=== PATIENT | female | born 1990 | race Hispanic/Latino ===

== ENCOUNTER 2020-06-30 10:39 | Outpatient (CLI) | payer OTHER, SELFPAY ==
--- NOTE | ~2020-06-30 | US_ITS ---
US thyroid INDICATION: Thyroid mass TECHNIQUE: Real-time sonographic images of the thyroid gland were obtained. COMPARISON: No prior studies for comparison. FINDINGS: The right thyroid lobe measures 6.1 x 2.2 x 2.3 cm. The left thyroid lobe measures 6.6 x 3 .8 x 4.5 cm. Thyroid echotexture is heterogeneous. In the right lobe there is a almost completely sergio id hypoechoic mass which is wider than tall, smooth margins and macrocalcification, TR 4. This mass m easures 3 x 1.8 x 1.7 cm. In the left lobe there is a complex heterogeneous appearing mass which is a lmost completely solid, predominantly hyperechoic, wider than tall, lobulated margins and internal va scularity measuring 4.5 x 3 x 3.9 cm, TR 4. IMPRESSION: 1. Bilateral thyroid masses which are concerning for malignancy. Bilateral ultrasound-guided thyroid biopsy recommended. Reviewed, dictated and finalized at location A. IMPRESSION: 1. Bilateral thyroid masses which are concerning for malignancy. Bilateral ult rasound-guided thyroid biopsy recommended.
== END 2020-06-30 10:40 | disposition home or self-care (01) ==
LOC: ANHIMG 10:47
PROVIDERS: PCP Physician Assistant; Visit Provider Physician Assistant
DX: E04.9 Nontoxic goiter, unspecified (principal)
CPT/HCPCS: 76536

== ENCOUNTER 2020-07-12 09:52 | Outpatient (CLI) | payer OTHER, SELFPAY ==
--- NOTE | ~2020-07-12 | US_ITS ---
EXAMINATION: US FNA w image guidance, US FNA additional DATE: 07/12/2020 10:44 INDICATION: Bilateral thyroid nodules TECHNIQUE: A time-out was performed to verify the patient's name, date of , and procedure to be performed . The procedure and its benefits and risks were discussed with the patient. Risks specifically discus sed included bleeding and infection. The patient understood the risks and agreed to proceed. The neck was prepped and draped in the usual sterile manner. Attention was first turned to the left thyroid n odule. 3 mL 1% lidocaine was used for local anesthesia. 6 passes were made with a 25G needle into th e lesion. Appropriate needle location was documented with continuous sonographic guidance. Attention was then turned to the right thyroid nodule. An additional 3 mL 1% lidocaine was used for local anes thesia. 6 passes were made with a 25G needle into the lesion. Appropriate needle location was docum ented with continuous sonographic guidance. Sterile bandages were applied. There were no immediate co mplications. FINDINGS: Grayscale ultrasound images demonstrate biopsy needles advanced into a 4.6 cm solid isoechoic left th yroid mass. Subsequent images demonstrate biopsy needles advanced into a 3.1 cm solid hypoechoic righ t thyroid mass. IMPRESSION: 1. Successful ultrasound-guided fine needle aspiration of a 4.6 cm solid left thyroid mass. 2. Successful ultrasound-guided fine-needle aspiration of a 3.1 cm solid right thyroid mass. Reviewed, dictated and finalized at location A. IMPRESSION: 1. Successful ultrasound-guided fine needle aspiration of a 4.6 cm solid left thyroid mass. 2. Successful ultrasound-guided fine-needle aspiration of a 3.1 cm solid right thyroid mass.
== END 2020-07-12 09:53 | disposition home or self-care (01) ==
LOC: ANHIMG 09:55
PROVIDERS: PCP Physician Assistant; Visit Provider Physician Assistant
DX: E04.1 Nontoxic single thyroid nodule (principal)
CPT/HCPCS: 10005; 10006; 88173; 88305

== ENCOUNTER 2021-03-13 11:10 | Outpatient (CLI) | payer OTHER, SELFPAY ==
--- NOTE | ~2021-03-13 | US_ITS ---
EXAMINATION: US thyroid DATE: 03/13/2021 11:36 INDICATION: Nontoxic single thyroid nodule. TECHNIQUE: Multiple ultrasound images of the thyroid were obtained. COMPARISON: Ultrasound 06/30/2020 FINDINGS: The right thyroid lobe measures 5.6 x 2.3 x 1.8 cm. The left thyroid lobe measures 6.5 x 3.4 x 4.1 c m. In the right thyroid lobe, there is a 3.0 cm solid, hypoechoic, [id number]-[id number]-whpt nodule with narendra h margin without echogenic foci (TI-RADS TR4), stable from 06/30/20. In the left thyroid lobe, there i s a 4.7 cm predominantly solid, isoechoic, kihsb-[id number]-oyqf nodule with smooth margin without echogeni c foci (TR3), stable from 06/30/20. Biopsy of both nodules on 07/12/2020 was benign. IMPRESSION: 1. Stable thyroid nodules, likely benign. Reviewed, dictated and finalized at location B.
== END 2021-03-13 11:11 | disposition home or self-care (01) ==
LOC: ANHIMG 11:14
PROVIDERS: PCP Physician Assistant
DX: E04.2 Nontoxic multinodular goiter (principal)
CPT/HCPCS: 76536

== ENCOUNTER 2023-07-10 07:42 | Emergency (ER) | payer OTHER, SELFPAY ==
[2023-07-10 07:43] VITALS: BP 137/84; PULSE 66; RESP 14; TEMP 36.5; O2SAT 97
[2023-07-10 08:59] LABS: Appearance Urine Cloudy (Clear); Bacteria Urine 4+ /hpf; Bilirubin Urine Negative (Negative); Blood Urine 3+ (Negative); Color Urine Yellow (Yellow); Glucose Urine UA Negative (Negative); Ketones Urine Negative (Negative); Leukocyte Esterase Ur 2+ LEU/UL (Negative); Nitrate Urine Positive (Negative); Non Pathogenic Casts 0-2; Protein Urine Trace mg/dL (Negative); Specific Grav Ur 1.021 (1.001-1.035); Squamous Epithelial Cell Urine Occasional /hpf (Few); Urobilinogen Urine 0.2 mg/dL (<2.0); WBC Urine >100 /hpf
[2023-07-10 09:14] LABS: Add Urine Microscopic? YES
--- NOTE | 2023-07-10 09:24 | ED.GENADULT ---
HPI - General Adult General Chief complaint: Urogenital-Female Stated complaint: urinary frequency, burning, bladder spasms Time Seen by Provider: 07/10/23 08:30 History of Present Illness HPI narrative: Patient is a 33-year-old female who presents ER with concerns for UTI. Over the last couple days she has been having urinary frequency and urgency and dysuria. She has occasional spasms. No fevers chills or sweats. No flank pain. Related Data Home Medications Medication Instructions Recorded Confirmed fluticasone propionate 50 1 spray intranasal BID 09/06/19 09/06/19 mcg/actuation nasal spray,suspension (Allergy Relief (fluticasone)) vit no.95-ferrous 1 tablet PO DAILY 09/06/19 09/06/19 fumarate 28 mg-folic acid 800 mcg tablet () Allergies Allergy/AdvReac Type Severity Reaction Status Date / Time No Known Allergies Allergy Unknown Verified 07/10/23 08:41 Review of Systems Constitutional: Constitutional: Denies chills and Denies fever(s) Gastrointestinal: Gastrointestinal: Reports abdominal pain, Denies nausea and Denies vomiting Genitourinary: Genitourinary: Denies hematuria, Reports nocturia, Reports dysuria, Reports pelvic pain, Denies flank pain and Denies vaginal discharge Comments: Patient is currently menstruating PMFSH Past Medical History Medical History (Updated 07/10/23 @ 12:52 by Robe To MD) Healthy female adult Surgical History Surgical History (Updated 07/10/23 @ 12:52 by Robe To MD) No history of previous surgery Family History Family History (System 09/28/22 @ 11:07 by Yeimy Jamil) Mother History of hysterectomy Uterine cancer Diabetes mellitus Ovarian cancer Cervical cancer Father Hypertension Social History Social History (System 09/28/22 @ 11:07 by Yeimy Jamil) Smoking status: Never smoker Substance use: never Gender identity (if verbalized by the patient): Female Spiritual care concerns: No Exam Narrative: GENERAL: Well-appearing, well-nourished, and in no acute distress. HEAD: Normocephalic, atraumatic. CHEST: Clear to auscultation. No respiratory distress. HEART: Regular rate and rhythm. Normal peripheral pulses. ABDOMEN: Soft, nontender, nondistended. EXTREMITIES: Normal range of motion. No edema. NEURO: Alert and oriented x3. PSYCH: Normal mood and affect. Course Course Emergency Course: Discussed results and treatment plan. Patient verbalized understanding. Discharge home. Vital Signs Vital signs: Vital Signs Temperature 97.7 F 07/10/23 07:43 Pulse Rate 66 07/10/23 07:43 Respiratory Rate 14 07/10/23 07:43 Blood Pressure 137/84 07/10/23 07:43 Pulse Oximetry 97 07/10/23 07:43 Oxygen Delivery Room Air 07/10/23 07:43 Temperature 97.7 F 07/10/23 07:43 Pulse Rate 66 07/10/23 07:43 Respiratory Rate 14 07/10/23 07:43 Blood Pressure 137/84 07/10/23 07:43 Pulse Oximetry 97 07/10/23 07:43 Oxygen Delivery Room Air 07/10/23 07:43 Medical Decision Making Vital Signs Vital Signs: Vital Signs Temperature 97.7 F 07/10/23 07:43 Pulse Rate 66 07/10/23 07:43 Respiratory Rate 14 07/10/23 07:43 Blood Pressure 137/84 07/10/23 07:43 Pulse Oximetry 97 07/10/23 07:43 Oxygen Delivery Room Air 07/10/23 07:43 Temperature 97.7 F 07/10/23 07:43 Pulse Rate 66 07/10/23 07:43 Respiratory Rate 14 07/10/23 07:43 Blood Pressure 137/84 07/10/23 07:43 Pulse Oximetry 97 07/10/23 07:43 Oxygen Delivery Room Air 07/10/23 07:43 Lab Data Labs: Lab Results 07/10/23 Range/Units 08:39 Urine Color Yellow (Yellow) Urine Appearance Cloudy H (Clear) Urine pH 6.0 (5.0-9.0) Ur Specific [place] 1.021 (1.001-1.035) Urine Protein Trace (Negative) mg/dL Urine Glucose (UA) Negative (Negative) mg/dL Urine Ketones Negative (Negative) mg/dL Ur Blood (Man) 3+ H (Negati
== END 2023-07-10 09:42 | disposition home or self-care (01) ==
PROVIDERS: Emergency Provider Emergency Medicine
DX: N39.0 Urinary tract infection, site not specified (principal)
CPT/HCPCS: 81001; 81025; 87077; 87086; 87088; 87186; 99283

== ENCOUNTER 2023-07-26 15:19 | Emergency (ER) | payer OTHER, SELFPAY ==
[2023-07-26 15:32] VITALS: BP 157/83; PULSE 78; RESP 19; TEMP 36.7; O2SAT 97
--- NOTE | 2023-07-26 16:17 | PC.NURSE ---
patient states that she is unable to wait at this time. ambulatory with steady gait. alert and oriented x4.
== END 2023-07-26 16:30 | disposition left against medical advice (07) ==
LOC: ANHED 16:23
DX: R51.9 Headache, unspecified (principal)
CPT/HCPCS: 99199

== ENCOUNTER 2023-11-10 08:18 | Emergency (ER) | payer OTHER, SELFPAY ==
[2023-11-10 08:35] VITALS: BP 141/90; PULSE 100; RESP 18; TEMP 36.1; O2SAT 99
--- NOTE | 2023-11-10 09:00 | ED.URI ---
HPI - URI/Sore Throat General Chief Complaint: Upper Respiratory Infection Stated Complaint: congestion Time Seen by Provider: 11/10/23 08:46 Source: patient and RN notes reviewed Mode of arrival: ambulatory Limitations: no limitations History of Present Illness HPI Narrative: Patient presents today with a one-week history of nasal congestion, rhinorrhea, yellow nasal discharge, or tonsil swelling without sore throat. Denies fever, cough. She has been using Benadryl, Mucinex, ibuprofen, and nasal spray without much relief. Patient states she was on Augmentin in September for pneumonia. Related Data Home Medications Medication Instructions Recorded Confirmed clonidine HCl 0.3 mg tablet mg 11/10/23 duloxetine 40 mg capsule,delayed mg PO 11/10/23 release levothyroxine 150 mcg tablet mcg 11/10/23 lurasidone 40 mg tablet mg 11/10/23 topiramate 50 mg tablet mg 11/10/23 trazodone 50 mg tablet mg 11/10/23 Allergies Allergy/AdvReac Type Severity Reaction Status Date / Time No Known Allergies Allergy Unknown Verified 11/10/23 08:33 Review of Systems Review of Systems: CONSTITUTIONAL: Denies body aches, fever, chills, or sweats. EYES: Denies visual changes, redness, or discharge. ENT: Denies rhinorrhea, sore throat, or otalgia.+ congestion, nasal drainage, tonsil swelling CARDIOVASCULAR: Denies chest pain, palpitations, or edema. RESPIRATORY: Denies cough or dyspnea. GASTROINTESTINAL: Denies abdominal pain, nausea, vomiting, or diarrhea. GENITOURINARY: Denies dysuria or hematuria. SKIN: Denies rash, itching, or wounds. MUSCULOSKELETAL: Denies back pain, joint pain, or myalgia. NEUROLOGIC: Denies headache, numbness, tingling, or weakness. PSYCH: Denies depression or anxiety. [facility] Past Medical History Medical History (Updated 11/10/23 @ 09:05 by CHER Villafuerte, CICI) History of thyroid cancer Surgical History Surgical History (Updated 11/10/23 @ 09:03 by CHER Villafuerte, CICI) H/O thyroidectomy No history of previous surgery Family History Family History Mother History of hysterectomy Uterine cancer Diabetes mellitus Ovarian cancer Cervical cancer Father Hypertension Social History Social History Smoking status: Never smoker Substance use: never Gender identity (if verbalized by the patient): Female Spiritual care concerns: No Exam Narrative: GENERAL: Mildly ill-appearing, well-nourished, and in no acute distress. HEAD: Normocephalic, atraumatic. EYES: EOMI. No redness or drainage. Conjunctivae normal. ENT: Mucous membranes pink and moist. Nares congestive. Bilateral erythematous and edematous nasal turbinates with purulent green discharge. TMs normal bilaterally. Throat normal. Uvula midline. NECK: Normal AROM. Supple. No lymphadenopathy. CHEST: No respiratory distress. Clear to auscultation. HEART: Regular rate and rhythm. No murmur appreciated. EXTREMITIES: Normal range of motion. No edema. SKIN: Warm, dry, no rash. Capillary refill normal. Normal skin turgor. NEURO: No focal deficits. Alert and oriented x3. Gait steady. PSYCH: Normal affect. No signs of depression or anxiety. Course Course Level of Care: Express Care Visit Vital Signs Vital signs: Vital Signs Temperature 96.9 F L 11/10/23 08:35 Pulse Rate 100 11/10/23 08:35 Respiratory Rate 18 11/10/23 08:35 Blood Pressure 141/90 H 11/10/23 08:35 Pulse Oximetry 99 11/10/23 08:35 Oxygen Delivery Room Air 11/10/23 08:35 Temperature 96.9 F L 11/10/23 08:35 Pulse Rate 100 11/10/23 08:35 Respiratory Rate 18 11/10/23 08:35 Blood Pressure 141/90 H 11/10/23 08:35 Pulse Oximetry 99 11/10/23 08:35 Oxygen Delivery Room Air 11/10/23 08:35 Reviewed MDM - URI/Sore Throat MDM Narrative Medical decision making narrative: Anuja
== END 2023-11-10 09:08 | disposition home or self-care (01) ==
PROVIDERS: Emergency Provider Nurse Practitioner
DX: J32.9 Chronic sinusitis, unspecified (principal); B96.89 Other specified bacterial agents as the cause of diseases classified elsewhere; Z79.899 Other long term (current) drug therapy; Z85.850 Personal history of malignant neoplasm of thyroid
CPT/HCPCS: 99213; G0463

== ENCOUNTER 2023-12-10 14:58 | Emergency (ER) | payer OTHER, SELFPAY ==
[2023-12-10] VITALS (7 sets, daily range): BP systolic 137–175; BP diastolic 84–100; PULSE 82–100; RESP 9–27; TEMP 36.8; O2SAT 98–100
[2023-12-10 15:50] LABS: Basophils Absolute Auto 0.1 K/mm3 (0.0-0.1); Basophils Percent Auto 0.7 % (0.2-1.2); Eosinophils Absolute Auto 0.2 K/mm3 (0-0.3); Eosinophils Percent Auto 2.1 % (0-4.4); Hematocrit 40.1 % (37.0-47.0); Hemoglobin 14.3 g/dL (12.0-15.0); Immature Granulocyte Absolute 0.01 K/mm3 (0.00-0.031); Immature Granulocyte Percent A 0.1 % (0-0.5); Lymphocytes Absolute Auto 4.67 K/mm3 (0.9-3.2); Lymphocytes Percent Auto 49.4 % (18.3-44.2); Mean Corpuscular HGB Conc 35.7 g/dl (32-36); Mean Corpuscular Hemoglobin 32.7 pg (26-34); Mean Corpuscular Volume 91.8 fl (80-100); Mean Platelet Volume 9.7 fl (7.4-10.4); Monocytes Absolute Auto 0.5 K/mm3 (0.1-0.6); Monocytes Percent Auto 5.3 % (2.6-8.5); Neutrophils Percent Auto 42.4 % (45.5-73.1); Platelet Count Result 298 k/mm3 (150-375); Red Blood Count 4.37 M/mm3 (4.2-5.4); Red Cell Distribution Width 13.1 % (11.5-14.5); White Blood Count 9.5 K/mm3 (4.5-10.0)
[2023-12-10 16:08] LABS: Alanine Aminotransferase 35 U/L (6-35); Albumin Level 4.7 g/dL (3.5-5.1); Alkaline Phosphatase 69 U/L (38-126); Anion Gap 11 mmol/L (8-16); Aspartate Amino Transferase 52 U/L (14-36); Bilirubin,Total 0.5 mg/dL (0.2-1.3); Blood Urea Nitrogen 6 mg/dL (7-17); Calcium 7.8 mg/dL (8.4-10.2); Carbon Dioxide 25 mmol/L (22-30); Chloride 100 mmol/L (98-107); Estimated CRCL calculation 123 ml/min; Estimated Glomerular Filt Rate > 60; Glucose 92 mg/dL (65-110); Potassium 2.8 mmol/L (3.4-5.0); Sodium 136 mmol/L (137-145)
--- NOTE | 2023-12-10 16:36 | ECG_ITS ---
Measurements Intervals [place] Rate: 89 P: 59 NC: 146 QRS: 37 QRSD: 97 T: -29 QT: 390 QTc: 476 Interpretive Statements SINUS RHYTHM MODERATE T-WAVE ABNORMALITY, CONSIDER LATERAL ISCHEMIA [-0.1+ mV T-WAVE IN I/aVL/V5/V6] MODERATE T-WAVE ABNORMALITY, CONSIDER INFERIOR ISCHEMIA [-0.1+ mV T-WAVE IN II/aVF] ABNORMAL ECG NO PREVIOUS ECG AVAILABLE FOR COMPARISON Electronically Signed On 12-11-2023 8:01:29 [employer]SULT[employer] by Frank Choe M.D.
[2023-12-10] MEDS: POTASSIUM CHLORIDE 20 MEQ PACKET (FOR LIQUID) 40 MEQ PO (16:59)
[2023-12-10] MEDS: SODIUM CHLORIDE 0.9% IV 1,000 ML 999 ML IV CONT (17:01)
[2023-12-10] MEDS: CALCIUM GLUCONATE 1,000 MG/10 ML VIAL 1000 MG IV PUSH (17:02)
[2023-12-10] MEDS: KCL 20 MEQ/SW 100 ML 100 ML 50 MEQ IVPB (17:11)
[2023-12-10 17:18] LABS: Amphetamine Screen Urine Negative (Negative); Barbiturate Screen Urine Negative (Negative); Benzodiazepines Screen Urine Negative (Negative); Cannabinoid Screen Urine Negative (Negative); Cocaine Screen Urine Negative (Negative); Methadone Screen Urine Negative (Negative); Opiate Screen Urine Negative (Negative); Phencyclidine Screen Urine Negative (Negative)
[2023-12-10 17:46] LABS: Creatine Kinase 355 U/L (30-135); Ethanol < 10 mg/dL (<10); Lipase 56 U/L (23-300); Magnesium 1.8 mg/dL (1.6-2.3); Phosphorus 3.2 mg/dL (2.5-4.5)
--- NOTE | 2023-12-10 17:49 | ED.NEUROSD ---
HPI - Neuro Symptoms/Deficit General Chief Complaint: Neuro Symptoms/Deficit Stated Complaint: hands tingling Time Seen by Provider: 12/10/23 16:35 Source: patient Limitations: no limitations History of Present Illness HPI Narrative: Patient is a 33-year-old female presents to the emergency department complaining of paresthesias in her hands and spasm so for left thumb since about 9:00 a.m. this morning. Patient notes that she was feeling well last night and denies any recent injuries or recent illness. Patient admits to history of this in the past when her calcium levels are low. Patient states that she was a history of papillary thyroid cancer and had her thyroid removed in November of 2022. Patient admits to family members also having thyroid abnormalities. Patient notes she was recently taken off of trazodone and Topamax and switch to mirtazapine alone 1 week ago which she takes for her headaches. Patient admits to consuming a normal diet. Patient denies any vomiting, nausea, diarrhea, urinary discomfort, abdominal pain, chest pain, difficulty breathing, cough, fever, sore throat, nasal congestion, neck pain, confusion, numbness, weakness. Patient admits to a possible history of low vitamin-D levels but denies ever being on vitamin-D supplementation. Patient admits to history of low potassium levels and used to take potassium supplements. Patient admits to some mild swelling in her bilateral feet. Related Data Home Medications Medication Instructions Recorded Confirmed clonidine HCl 0.3 mg tablet mg 11/10/23 duloxetine 40 mg capsule,delayed mg PO 11/10/23 release levothyroxine 150 mcg tablet mcg 11/10/23 lurasidone 40 mg tablet mg 11/10/23 topiramate 50 mg tablet mg 11/10/23 trazodone 50 mg tablet mg 11/10/23 Allergies Allergy/AdvReac Type Severity Reaction Status Date / Time No Known Allergies Allergy Unknown Verified 12/10/23 16:10 Review of Systems Review of Systems: A 10 system review of systems was completed on the patient and is negative except for what is stated in the HPI. Nursing and ancillary documentation was reviewed. [facility] Past Medical History Medical History (Updated 12/10/23 @ 20:08 by Cameron Serna, ) History of thyroid cancer Surgical History Surgical History (Updated 11/10/23 @ 09:03 by Coty Simpson, [employer], ) H/O thyroidectomy No history of previous surgery Family History Family History Mother History of hysterectomy Uterine cancer Diabetes mellitus Ovarian cancer Cervical cancer Father Hypertension Social History Social History Smoking status: Never smoker Substance use: never Gender identity (if verbalized by the patient): Female Spiritual care concerns: No Comments At time of signature, I have reviewed and agree with nursing past medical, surgical, social and family history unless otherwise noted. Please see the nursing chart for further information. There is no relevant family history pertinent to the presenting complaint. Exam Narrative: CONST: No acute distress. Well nourished. HENMT: Head is normocephalic and atraumatic. Moist mucous membranes. No posterior oropharynx erythema. EYES: No conjunctival icterus, injection, or pallor. PERRL. NECK: No meningeal signs. RESP: Able to speak in full sentences. Normal respiratory effort. CTAB. CARDIO: Regular rate. Regular rhythm. 2+ DP and radial pulses bilaterally. GI: Nondistended. No tenderness to palpation. Soft. : No CVA tenderness to palpation. SKIN: No rashes or lesions noted on exposed skin. NEURO: Oriented x3. Moves all extremities. No focal neurological deficits. EXTREM/MSK/BACK: Scant nonpitting edema of the bilateral feet. PSYCH: Normal affect. Course Vital Signs Vital signs: Vital Signs Temperature 98.3 F 12/10/23 15:
[2023-12-10 18:58] LABS: Free T4 Free Thyroxine Reflex 0.69 ng/dL (0.78-2.19)
--- NOTE | 2023-12-10 19:00 | PC.NURSE ---
this rn asked [employer] lab technican Shelly, to call lab to have lab add on urine analysis for pt. Shelly stated, lab would look for it to add on.
--- NOTE | 2023-12-10 19:21 | PC.NURSE ---
this rn assumed care of patient. this rn took patient report from lety funes.
--- NOTE | 2023-12-10 19:50 | PM.IMHP ---
H&P: HPI History of Present Illness Date/Time: 12/10/23 19:50 [facility] Past Medical History Medical History (Updated 12/10/23 @ 20:08 by Cameron Serna DO) History of thyroid cancer Surgical History Surgical History (Updated 11/10/23 @ 09:03 by CHER Villafuerte, BC) H/O thyroidectomy No history of previous surgery Family History Family History Mother History of hysterectomy Uterine cancer Diabetes mellitus Ovarian cancer Cervical cancer Father Hypertension Social History Social History Smoking status: Never smoker Substance use: never Gender identity (if verbalized by the patient): Female Spiritual care concerns: No Meds Home Medications and Allergies Home Medications Medication Instructions Recorded Confirmed Type amoxicillin 875 mg-potassium 1 tablet PO Q12H 10 days #20 tabs 11/10/23 Rx clavulanate 125 mg tablet clonidine HCl 0.3 mg tablet mg 11/10/23 History duloxetine 40 mg capsule,delayed mg PO 11/10/23 History release levothyroxine 150 mcg tablet mcg 11/10/23 History lurasidone 40 mg tablet mg 11/10/23 History topiramate 50 mg tablet mg 11/10/23 History trazodone 50 mg tablet mg 11/10/23 History Allergies Allergy/AdvReac Type Severity Reaction Status Date / Time No Known Allergies Allergy Unknown Verified 12/10/23 16:10 Vital Signs Vital Signs - 24 hr 12/10/23 15:03 12/10/23 16:14 12/10/23 16:14 Temperature 98.3 F Pulse Rate 100 95 95 Respiratory Rate 18 9 L Blood Pressure 175/100 H 144/92 H Pulse Oximetry 100 99 Oxygen Delivery Room Air 12/10/23 17:09 12/10/23 18:48 Temperature Pulse Rate 91 82 Respiratory Rate 24 H 27 H Blood Pressure 157/90 H 140/84 Pulse Oximetry 99 98 Oxygen Delivery H&P: Results Labs Labs: Short CBC 12/10/23 Range/Units 15:36 WBC 9.5 (4.5-10.0) K/mm3 Hgb 14.3 D (12.0-15.0) g/dL Hct 40.1 (37.0-47.0) % Plt Count 298 D (150-375) k/mm3 BMP 12/10/23 15:36 Sodium 136 L Potassium 2.8 L* Chloride 100 Carbon Dioxide 25 BUN 6 L Creatinine 0.70 Glucose 92 Calcium 7.8 L Cardiac Enzymes 12/10/23 Range/Units 15:35 Total Creatine Kinase 355 H (30-135) U/L Liver Function 12/10/23 Range/Units 15:36 Total Bilirubin 0.5 (0.2-1.3) mg/dL AST 52 H (14-36) U/L ALT 35 (6-35) U/L Alkaline Phosphatase 69 (38-126) U/L Albumin 4.7 (3.5-5.1) g/dL
--- NOTE | 2023-12-10 20:18 | PC.NURSE ---
this rn contacted lab about a urine analysis to be added to the urine drug screen on the pt urine that was already sent down. senior service technician stated, I will look for it but I don't think it is down here, must have been sent to another floor . This RN stated to laboratory director that urine was sent down earlier on pt and a urine drug screen had already resulted, a urine analysis was just what needed to be added on. senior service technician stated she would look for it.
[2023-12-10] MEDS: SODIUM CHLORIDE 0.9% IV 1,000 ML 125 ML IV CONT (20:33)
[2023-12-10 20:39] LABS: Appearance Urine Clear (Clear); Bacteria Urine Rare /hpf; Bilirubin Urine Negative (Negative); Blood Urine Negative (Negative); Color Urine Yellow (Yellow); Glucose Urine UA Negative (Negative); Ketones Urine Negative (Negative); Leukocyte Esterase Ur Negative LEU/UL (Negative); Nitrate Urine Negative (Negative); Non Pathogenic Casts 0-2; Protein Urine 2+ mg/dL (Negative); RBC Urine 0-2 /hpf (0-2); Specific Grav Ur 1.011 (1.001-1.035); Squamous Epithelial Cell Urine Few /hpf (Few); Urobilinogen Urine 0.2 mg/dL (<2.0); WBC Urine 0-5 /hpf; pH Urine 6.5 (5.0-9.0)
[2023-12-10 21:00] LABS: Add Urine Microscopic? YES
[2023-12-14 11:18] LABS: Vitamin D 1,25 (OH)2 Total 102 pg/mL (18-72); Vitamin D2 1,25 (OH)2 <8 pg/mL; Vitamin D3 1,25 (OH)2 102 pg/mL
== END 2023-12-10 21:36 | disposition home or self-care (01) ==
PROVIDERS: Emergency Medicine; Emergency Provider Student in an Organized Health Care Education/Training Program
DX: R20.2 Paresthesia of skin (principal); E83.51 Hypocalcemia; E87.6 Hypokalemia; E89.0 Postprocedural hypothyroidism; R29.0 Tetany; Z85.850 Personal history of malignant neoplasm of thyroid; R94.31 Abnormal electrocardiogram [ECG] [EKG]
CPT/HCPCS: 36415; 80053; 80307; 81001; 81025; 82306; 82550; 82652; 83690; 83735; 84100; 84439; 84443; 85025; 93005; 96361; 96365; 96366; 96375; 99284; A9270; J0612; J3480; J7030

== ENCOUNTER 2023-12-12 15:15 | Emergency (ER) | payer OTHER, SELFPAY ==
[2023-12-12 15:17] VITALS: BP 157/106; PULSE 116; RESP 18; TEMP 36.6; O2SAT 99
--- NOTE | 2023-12-12 15:23 | ECG_ITS ---
Measurements Intervals [place] Rate: 108 P: 53 AL: 120 QRS: 44 QRSD: 93 T: -5 QT: 305 QTc: 409 Interpretive Statements SINUS TACHYCARDIA NONSPECIFIC T-WAVE ABNORMALITY ABNORMAL ECG COMPARED TO ECG 12/10/2023 16:52:00 SINUS TACHYCARDIA NOW PRESENT Electronically Signed On 12-13-2023 8:37:28 [employer] by Frank Choe M.D.
[2023-12-12 15:40] LABS: Basophils Absolute Auto 0.1 K/mm3 (0.0-0.1); Basophils Percent Auto 0.6 % (0.2-1.2); Eosinophils Absolute Auto 0.2 K/mm3 (0-0.3); Eosinophils Percent Auto 1.7 % (0-4.4); Hematocrit 40.3 % (37.0-47.0); Hemoglobin 13.8 g/dL (12.0-15.0); Immature Granulocyte Absolute 0.04 K/mm3 (0.00-0.031); Immature Granulocyte Percent A 0.4 % (0-0.5); Lymphocytes Absolute Auto 4.23 K/mm3 (0.9-3.2); Lymphocytes Percent Auto 43.8 % (18.3-44.2); Mean Corpuscular HGB Conc 34.2 g/dl (32-36); Mean Corpuscular Hemoglobin 31.9 pg (26-34); Mean Corpuscular Volume 93.3 fl (80-100); Mean Platelet Volume 9.7 fl (7.4-10.4); Monocytes Absolute Auto 0.6 K/mm3 (0.1-0.6); Monocytes Percent Auto 5.8 % (2.6-8.5); Neutrophils Absolute Auto 4.6 K/mm3 (1.3-6.7); Neutrophils Percent Auto 47.7 % (45.5-73.1); Platelet Count Result 297 k/mm3 (150-375); Red Blood Count 4.32 M/mm3 (4.2-5.4); Red Cell Distribution Width 13.2 % (11.5-14.5); White Blood Count 9.7 K/mm3 (4.5-10.0)
[2023-12-12 15:50] LABS: Alanine Aminotransferase 33 U/L (6-35); Albumin Level 4.4 g/dL (3.5-5.1); Alkaline Phosphatase 63 U/L (38-126); Anion Gap 10 mmol/L (8-16); Aspartate Amino Transferase 54 U/L (14-36); Bilirubin,Total 0.4 mg/dL (0.2-1.3); Blood Urea Nitrogen 7 mg/dL (7-17); Calcium 10.3 mg/dL (8.4-10.2); Carbon Dioxide 26 mmol/L (22-30); Chloride 103 mmol/L (98-107); Estimated Glomerular Filt Rate > 60; Glucose 105 mg/dL (65-110); Potassium 3.5 mmol/L (3.4-5.0); Sodium 139 mmol/L (137-145)
--- NOTE | 2023-12-12 16:08 | PC.NURSE ---
Pt A&O x4 walked out before seeing provider.
== END 2023-12-12 16:46 | disposition left against medical advice (07) ==
PROVIDERS: Emergency Provider Emergency Medicine
DX: R00.2 Palpitations (principal)
CPT/HCPCS: 36415; 80053; 85025; 93005; 99199; 99283

== ENCOUNTER 2024-08-02 09:50 | Emergency (ER) | payer OTHER, SELFPAY ==
[2024-08-02 10:13] VITALS: BP 147/90; PULSE 90; RESP 18; TEMP 36.4; O2SAT 98
[2024-08-02 10:15] VITALS: BP 147/90; PULSE 90; RESP 18; TEMP 36.4; O2SAT 98
[2024-08-02 10:26] LABS: EDSTREPNEGPOS1 Positive (Negative)
--- NOTE | 2024-08-02 11:03 | ED.URI ---
HPI - URI/Sore Throat General Chief Complaint: Upper Respiratory Infection Stated Complaint: cold symptoms and throat pain Time Seen by Provider: 08/02/24 10:24 Source: patient, RN notes reviewed and old records reviewed Mode of arrival: ambulatory Limitations: no limitations History of Present Illness HPI Narrative: 34-year-old female to Express Care with complaint of sore throat that has become increasingly worse over the past 3 days. Patient states that her soft palette has become increasingly red, swollen and painful. Patient endorses cough with thick green sputum that is foul tasting as well and does increased pain with swallowing , runny nose, fatigue, fever up to 100?. patient has attempted to treat her symptoms at home with Motrin and NyQuil with little relief. Patient able to tolerate fluids by mouth. Patient denies hoarseness, difficulty swallowing, shortness of breath, allergies, pertinent medical history. Patient resting uncomfortably in exam room, appears acutely ill. Respirations even and nonlabored. Patient in no acute distress. Related Data Home Medications Medication Instructions Recorded Confirmed levothyroxine 150 mcg tablet 150 mcg DIRECTED 11/10/23 08/02/24 Allergies Allergy/AdvReac Type Severity Reaction Status Date / Time No Known Allergies Allergy Unknown Verified 08/02/24 10:14 Review of Systems Review of Systems: All systems reviewed & are unremarkable except as noted in HPI and below Constitutional: Constitutional: Reports as per HPI, Reports fatigue and Reports fever(s) Eyes: Eyes: Reports no additional eye complaints ENT: Reports as per HPI, Reports nasal discharge and Reports sore throat Cardiovascular: Cardiovascular: Reports no additional cardiovascular complaints, Denies chest pain and Denies dyspnea Respiratory: Respiratory: Reports no additional respiratory complaints, Reports change in phlegm color, Reports cough and Denies dyspnea Musculoskeletal: Musculoskeletal: Reports no additional musculoskeletal complaints Neurologic: Reports system reviewed and no additional complaints, except as documented Psychiatric: Psychiatric: Reports no additional psychiatric complaints PMF Past Medical History Medical History History of thyroid cancer Surgical History Surgical History H/O thyroidectomy No history of previous surgery Family History Family History Mother History of hysterectomy Uterine cancer Diabetes mellitus Ovarian cancer Cervical cancer Father Hypertension Social History Social History Smoking status: Never smoker Substance use: never Gender identity (if verbalized by the patient): Female Spiritual care concerns: No Comments At the time of my signature, I reviewed and agree with the nursing past medical, surgical, social, and family history. There is no relevant family history pertinent to the patient complaint. Exam Const: General: cooperative, no acute distress, alert, ill appearing acutely, tired appearing, uncomfortable and well nourished Nutritional Appearance: well nourished Orientation/consciousness: patient oriented x3 Limitations: no limitations HENMT: Head: normal to inspection Ears: external ears normal and TM abnormal erythematous bilateral Face/Nose/Sinus: Normal external nose present, Normal nares present, normal facial exam, No erythema and No edema Face and sinus: normal facial exam, no erythema and no edema Mouth: Yes Normal oral and palatal mucosa present Throat: uvula midline, abnormal tonsil bilateral erythema, exudates and hypertrophy 3+, posterior oropharynx abnormal erythema and uvula not displaced Eyes: General: appearance normal, both eyes and all related structures Ne
== END 2024-08-02 10:36 | disposition home or self-care (01) ==
PROVIDERS: Emergency Provider Nurse Practitioner Family
DX: J02.0 Streptococcal pharyngitis (principal); E89.0 Postprocedural hypothyroidism; Z85.850 Personal history of malignant neoplasm of thyroid
CPT/HCPCS: 87880; 99213; G0463

== ENCOUNTER 2024-09-01 15:05 | Emergency (ER) | payer OTHER, SELFPAY ==
[2024-09-01 15:29] VITALS: BP 132/71; PULSE 92; RESP 18; TEMP 36.3; O2SAT 99
--- NOTE | 2024-09-01 15:29 | ED.URI ---
HPI - URI/Sore Throat General Chief Complaint: Upper Respiratory Infection Stated Complaint: sore throat Time Seen by Provider: 09/01/24 15:45 Source: patient, RN notes reviewed and old records reviewed Mode of arrival: ambulatory Limitations: no limitations History of Present Illness HPI Narrative: 34-year-old female presents to the [facility] a sore throat 2 days. Difficulty swallowing arrival however maintaining on secretions. Talking in full sentences. Diagnosed with strep several weeks ago Related Data Home Medications Medication Instructions Recorded Confirmed levothyroxine 150 mcg tablet 175 mcg PO DAILY 11/10/23 09/01/24 ergocalciferol (vitamin D2) 1,250 1,250 mcg PO WEEKLY 09/01/24 09/01/24 mcg (50,000 unit) capsule hydrochlorothiazide 12.5 mg tablet 12.5 mg PO DAILY 09/01/24 09/01/24 Allergies Allergy/AdvReac Type Severity Reaction Status Date / Time No Known Allergies Allergy Unknown Verified 09/01/24 15:20 Review of Systems Review of Systems: All systems reviewed & are unremarkable except as noted in HPI and below Constitutional: Constitutional: Reports no additional constitutional complaints ENT: Reports as per HPI and Reports sore throat Cardiovascular: Cardiovascular: Reports no additional cardiovascular complaints, Denies chest pain and Denies dyspnea Respiratory: Respiratory: Reports no additional respiratory complaints, Denies chest congestion, Denies cough and Denies dyspnea Gastrointestinal: Gastrointestinal: Reports no additional gastrointestinal complaints, Denies abdominal pain, Denies nausea and Denies vomiting Musculoskeletal: Musculoskeletal: Reports no additional musculoskeletal complaints Integumentary/Breasts: Skin/Breast: Reports system reviewed and no additional complaints, except as docu PMFSH Past Medical History Medical History History of thyroid cancer Surgical History Surgical History H/O thyroidectomy No history of previous surgery Family History Family History Mother History of hysterectomy Uterine cancer Diabetes mellitus Ovarian cancer Cervical cancer Father Hypertension Social History Social History Smoking status: Never smoker Substance use: never Gender identity (if verbalized by the patient): Female Spiritual care concerns: No Comments At the time of my signature, I reviewed and agree with the nursing past medical, surgical, social, and family history. There is no relevant family history pertinent to the patient complaint. Exam Const: General: cooperative, healthy appearing, comfortable, no acute distress, well developed, alert and well nourished Nutritional Appearance: well nourished and obese Orientation/consciousness: patient oriented x3 Limitations: no limitations HENMT: Head: normal to inspection Ears: hearing grossly normal bilaterally and external ears normal Face/Nose/Sinus: Normal external nose present, normal facial exam and face symmetric Face and sinus: normal facial exam and face symmetric Mouth: Yes Normal oral and palatal mucosa present, Yes lip normal and Yes tongue normal Throat: uvula midline and abnormal tonsil bilateral erythema and hypertrophy 2+ Eyes: General: appearance normal, both eyes and all related structures Alignment and Position: alignment normal Periorbital: periorbital findings normal Neck: Neck: normal visual inspection, full ROM, no lymphadenopathy and no meningeal signs Chest: Chest palpation & inspection: normal inspection of the chest Resp: Effort & Inspection: normal respiratory effort and able to speak in complete sentences Auscultation: clear to auscultation bilaterally, no crackles, no rales, no rhonchi and no wheezes Cardio: Rate: regular rate Skin: General skin exam: normal color and no rashes or lesions noted Lesions: no lesions Rashes: no rashes Wounds: no wounds Neuro: General: patient oriented x3, gait normal, tone normal, moves all extremities and no meningeal signs Cognition (Neuro): normal cognition Speech: normal speech Gait exam (Neuro): Normal gait present Extrem: General: normal to inspection, full ROM, capillary refill normal and normal gait Psych: Appearance: grossly normal and well kempt Mental Status: mental status grossly normal Speech and movement: Normal speech and movement present and Clear speech present Affect: normal affect Attitude: cooperative Course Course Level of Care: Express Care Visit Vital Signs Vital signs: Vital Signs Temperature 97.4 F L 09/01/24 15:29 Pulse Rate 92 09/01/24 15:29 Respiratory Rate 18 09/01/24 15:29 Blood Pressure 132/71 09/01/24 15:29 Pulse Oximetry 99 09/01/24 15:29 Oxygen Delivery Room Air 09/01/24 15:29 Temperature 97.4 F L 09/01/24 15:29 Pulse Rate 92 09/01/24 15:29 Respiratory Rate 18 09/01/24 15:29 Blood Pressure 132/71 09/01/24 15:29 Pulse Oximetry 99 09/01/24 15:29 Oxygen Delivery Room Air 09/01/24 15:29 Reviewed MDM - URI/Sore Throat MDM Narrative Medical decision making narrative: Patient sitting comfortably in exam room, nontoxic, vitals stable. Patient in no acute distress Patient presents with a sore throat Patient positive for strep Patient appropriate for outpatient treatment with antibiotic and close follow-up Discharge instructions reviewed with patient, as well as provided in writing per nursing staff. The instructions also include specific and strict return/GO TO THE ER as well as f/u information. All questions have been answered, and the patient deny any further questions with discharge and discharge plan. Some parts of this dictation were generated by voice recognition software and may contain typographical and/or grammatical inaccuracies. Differential Diagnosis Differential diagnosis: Likely upper respiratory infection, otitis media, sinusitis, viral infection and pharyngitis Lab Data Labs: Lab Results 09/01/24 Range/Units 15:34 POC Grp A Strep Screen Positive (Negative) Reviewed Critical Care Time Critical Care Time Critical Care Time: No Discharge Plan Discharge Clinical Impression: Strep throat Patient Disposition: Home, Self-Care Condition: Stable Instructions: Antibiotic Form, Strep Throat (ED) Additional Instructions: After 24-48 hours on antibiotics, Throw the toothbrush away, start using a new one. Please be sure to wash bed linens especially pillow cases. Repeat once you finish the antibiotics. Do not share drinks. Take Motrin alternating with Tylenol for pain and fever alternating every 4 hours. Increase fluids, avoid caffeine. Give plenty of water, juice, Gatorade, Pedialyte, ice pops in Jell-O Follow up with Primary provider if not getting better this week For new or worsening symptoms go directly to the emergency room Patient Language: Italian Prescriptions: New amoxicillin-pot clavulanate 875-125 mg tablet 1 tablet PO Q12H Qty: 20 0RF No Action ergocalciferol (vitamin D2) 1,250 mcg (50,000 unit) capsule 1,250 mcg PO WEEKLY hydrochlorothiazide 12.5 mg tablet 12.5 mg PO DAILY levothyroxine 150 mcg tablet 175 mcg PO DAILY Follow-up/Referrals: Deana,Dona [Other] - 2 Weeks ([facility] follow-up) Time of Disposition: 15:47
[2024-09-01 15:36] LABS: EDSTREPNEGPOS1 Positive (Negative)
== END 2024-09-01 15:53 | disposition home or self-care (01) ==
PROVIDERS: Emergency Provider Nurse Practitioner
DX: J02.0 Streptococcal pharyngitis (principal); E89.0 Postprocedural hypothyroidism; Z85.850 Personal history of malignant neoplasm of thyroid
CPT/HCPCS: 87880; 99213; G0463

== ENCOUNTER 2024-11-02 10:41 | Emergency (ER) | payer OTHER, SELFPAY ==
--- NOTE | 2024-11-02 10:45 | ED.URI ---
HPI - URI/Sore Throat General Chief Complaint: Upper Respiratory Infection Stated Complaint: walking pneumonia Time Seen by Provider: 11/02/24 10:45 Source: patient, RN notes reviewed and old records reviewed Mode of arrival: ambulatory Limitations: no limitations History of Present Illness HPI Narrative: patient presents with complaints of productive cough. She reports that her symptoms have been present for approximately 3 days. She has accompanied body aches, low-grade fever, headache. She reports that her children were diagnosed with atypical pneumonia at [facility], says that she now has very same symptoms that her children presented with. She denies any shortness of breath. says that she has been using albuterol with good results. She is not in any distress. She voices no other concerns or complaints today Related Data Home Medications ?Medication ?Instructions ?Recorded ?Confirmed ?Last Taken ?Type levothyroxine 150 mcg tablet 175 mcg PO DAILY 11/10/23 09/01/24 Unknown History ergocalciferol (vitamin D2) 1,250 1,250 mcg PO WEEKLY 09/01/24 09/01/24 Unknown History mcg (50,000 unit) capsule hydrochlorothiazide 12.5 mg tablet 12.5 mg PO DAILY 09/01/24 09/01/24 Unknown History Allergies Allergy/AdvReac Type Severity Reaction Status Date / Time No Known Allergies Allergy Unknown Verified 11/02/24 10:45 Review of Systems Review of Systems: All systems reviewed & are unremarkable except as noted in HPI and below Constitutional: Constitutional: Reports no additional constitutional complaints, Reports body ache(s), Reports chills, Reports fever(s) and Reports headache(s) ENT: Reports system reviewed and no additional complaints, except as documented Cardiovascular: Cardiovascular: Reports no additional cardiovascular complaints Respiratory: Respiratory: Reports no additional respiratory complaints, Reports chest congestion, Reports cough, Reports excessive phlegm production and Reports wheezing Gastrointestinal: Gastrointestinal: Reports no additional gastrointestinal complaints PMFSH Past Medical History Medical History History of thyroid cancer Surgical History Surgical History H/O thyroidectomy No history of previous surgery Family History Family History Mother History of hysterectomy Uterine cancer Diabetes mellitus Ovarian cancer Cervical cancer Father Hypertension Social History Social History Smoking status: Never smoker Substance use: never Gender identity (if verbalized by the patient): Female Spiritual care concerns: No Comments At the time of my signature, I reviewed and agree with the nursing past medical, surgical, social, and family history. There is no relevant family history pertinent to the patient complaint. Exam Const: General: cooperative, no acute distress, alert, awake and uncomfortable Orientation/consciousness: oriented to person, oriented to place and oriented to time HENMT: Head: normal to inspection Resp: Effort & Inspection: normal respiratory effort and able to speak in complete sentences Auscultation: clear to auscultation bilaterally, crackles on the left at the base, no rales, no rhonchi and no wheezes Cardio: Palpation: normal PMI Rate: regular rate Rhythm: regular rhythm Heart sounds: S1 normal heart sound present and S2 normal heart sound present Neuro: General: oriented to person, oriented to place and oriented to time Cranial nerves: Yes CN's II-XII intact bilaterally Psych: Appearance: grossly normal Thought process: Normal thought process present Insight: Good insight present (Psych) Judgement: Good judgement present (Psych) Course Course Level of Care: Express Care Visit Vital Signs Vital signs: Reviewed MDM - URI/Sore Throat MDM Narrative Medical decision making narrative: history and exam consistent with 2nd atypical pneumonia that is prevalent within the community at this time. Patient nontoxic appearing, stable discharge home with p.o. antibiotic therapy, steroid burst, bronchodilators. Discharge instructions reviewed with patient, as well as provided in writing per nursing staff. The instructions also include specific and strict return/GO TO THE ER as well as f/u information. All questions have been answered, and the patient deny any further questions with discharge and discharge plan. Some parts of this dictation were generated by voice recognition software and may contain typographical and/or grammatical inaccuracies. Differential Diagnosis Differential diagnosis: Likely upper respiratory infection, sinusitis, viral infection and bronchitis Medical Records Attestation: I reviewed the patient's medical records. Lab Data Attestation: I reviewed the patient's lab results. Discharge Plan Discharge Clinical Impression: Atypical pneumonia Patient Disposition: Home, Self-Care Condition: Stable Instructions: Antibiotic Form, Community Acquired Pneumonia (ED) Additional Instructions: Take medications as prescribed. Follow with primary care provider. Emergency department for new or worse symptoms Patient Language: Singaporean Prescriptions: New azithromycin 250 mg tablet See Rx Instructions .ROUTE .COMPLEX Qty: 6 0RF Rx Instructions: For 250 mg dose pack: take 500 mg today (day 1), then 250 mg for 4 days (days 2-5) albuterol sulfate [Ventolin HFA] 90 mcg/actuation HFA aerosol inhaler 2 puff inhalation QID PRN (Reason: shortness of breath or wheezing) Qty: 8.5 0RF prednisone 50 mg tablet 50 mg PO DAILY Qty: 5 0RF No Action ergocalciferol (vitamin D2) 1,250 mcg (50,000 unit) capsule 1,250 mcg PO WEEKLY hydrochlorothiazide 12.5 mg tablet 12.5 mg PO DAILY levothyroxine 150 mcg tablet 175 mcg PO DAILY Follow-up/Referrals: UNKNOWN,DOCTOR [Non-Staff] - Time of Disposition: 11:09
[2024-11-02 10:50] VITALS: BP 133/80; PULSE 85; RESP 18; TEMP 36; O2SAT 97
== END 2024-11-02 11:10 | disposition home or self-care (01) ==
PROVIDERS: Emergency Provider Nurse Practitioner Family
DX: J18.9 Pneumonia, unspecified organism (principal); E89.0 Postprocedural hypothyroidism; Z85.850 Personal history of malignant neoplasm of thyroid
CPT/HCPCS: 99213; G0463